=== PATIENT | male | born 1970 ===

== ENCOUNTER 2023-08-03 05:18 | Day surgery (SDC) | payer OTHER ==
[2023-07-29 15:18] VITALS: BMI 27.1
[2023-08-03 10:05] VITALS: TEMP 98
[2023-08-03 10:34] VITALS: BP 117/70; PULSE 69; RESP 14
== END 2023-08-03 10:42 | disposition home or self-care (01) ==
LOC: JASU-ENDO 05:18
PROVIDERS: ATTEND Internal Medicine Gastroenterology
PROC: 0DJD8ZZ Inspection of Lower Intestinal Tract, Via Natural or Artificial Opening Endoscopic (ICD-10-PCS; principal; 2023-08-03 09:30)
DX: Z12.11 Encounter for screening for malignant neoplasm of colon (principal); K64.8 Other hemorrhoids